=== PATIENT | male | born 1980 | race Caucasian/White ===

== ENCOUNTER 2018-07-19 18:31 | Emergency (ER) | payer BC, OTHER ==
--- NOTE | 2018-07-19 18:35 | PDOC ---
Rapid Medical Evaluation Time Seen by Provider: 07/19/18 18:32 Medical Evaluation: 07/19/18 18:33 I have performed a brief in-person evaluation of this patient. The patient presents with a chief complaint of: injury to right hand. Reports pain to fingers of right hand, got caught in a machinery at work Pertinent physical exam findings are: NAD even and unlabored breathing right 2nd, 3rd, and 4th fingers with superficial abrasions +swelling I have ordered the following: xray ordered The patient will proceed o the Ed for further evaluation.
[2018-07-19 18:36] VITALS: BP 156/96; PULSE 84; TEMP 97.9; BMI 28.8
[2018-07-19] MEDS ORDERED: DIPHTH,PERTUSS(ACELL),TET 0.5 ML DISP.SYRIN IM ONE (18:37)
[2018-07-19] MEDS ORDERED: IBUPROFEN 400 MG TABLET (FP) PO ONE ×2 (19:13→19:16)
--- NOTE | 2018-07-19 19:13 | PDOC ---
History of Present Illness - General Chief Complaint: Injury Stated Complaint: SWOLLEN FINGERS/YFD Time Seen by Provider: 07/19/18 18:32 History Source: Patient Exam Limitations: No Limitations - History of Present Illness Initial Comments: 07/19/18 19:46 Patient is a 38-year-old male who works for [employer], who presents emergency department today after getting his right hand caught in on a a metal step on the fire truck. Patient states he was pulling something down the steps fell on his hand. He states that the top 3 of his right digits hurt. Denies fevers, weakness, numbness and tingling to the extremities Past History - Past History Allergies/Adverse Reactions: Allergies No Known Allergies Allergy (Verified 07/19/18 18:36) Home Medications: Ambulatory Orders Aspirin 81 mg PO DAILY 07/19/18 Tetanus Status: More than 5 years - Social History Smoking Status: Never smoked Review of Systems - Review of Systems Able to Perform ROS?: Yes Comments:: 07/19/18 19:47 CONSTITUTIONAL: Absent: fever, chills, diaphoresis, generalized weakness, malaise, loss of appetite HEENT: Absent: rhinorrhea, nasal congestion, throat pain, throat swelling, difficulty swallowing, mouth swelling, ear pain, eye pain, visual Changes CARDIOVASCULAR: Absent: chest pain, loss of consciousness, palpitations, irregular heart rate, peripheral edema RESPIRATORY: Absent: cough, shortness of breath, dyspnea with exertion, orthopnea, wheezing, stridor, hemoptysis GASTROINTESTINAL: Absent: abdominal pain, abdominal distension, nausea, vomiting, diarrhea, constipation, melena, hematochezia GENITOURINARY: Absent: dysuria, frequency, urgency, hesitancy, hematuria, flank pain, genital pain MUSCULOSKELETAL: Present: R hand pain Absent: myalgia, arthralgia, joint swelling SKIN: Absent: rash, itching, pallor HEMATOLOGIC/IMMUNOLOGIC: Absent: easy bleeding, easy bruising, lymphadenopathy, frequent infections ENDOCRINE: Absent: unexplained weight gain, unexplained weight loss, heat intolerance, cold intolerance NEUROLOGIC: Absent: headache, focal weakness or paresthesias, dizziness, unsteady gait, seizure, mental status changes, bladder or bowel incontinence PSYCHIATRIC: Absent: anxiety, depression, suicidal or homicidal ideation, hallucinations. Is the patient limited [place] Citizen proficient: No *Physical Exam - Vital Signs Last Vital Signs Temp Pulse Resp BP Pulse Ox 97.9 F 84 16 156/96 98 07/19/18 18:31 07/19/18 18:31 07/19/18 18:31 07/19/18 18:31 07/19/18 18:31 - Physical Exam Comments: 07/19/18 19:48 GENERAL: Well developed, well nourished. Awake and alert. No acute distress. NECK: Supple. Full ROM. No JVD. Carotid pulses 2+ and symmetric, without bruits. No thyromegaly. No lymphadenopathy. MUSCULOSKELETAL Pt able to move all fingers on the R hand. Normal range of motion at all joints. No bony deformities or tenderness. No CVA tenderness. EXTREMITIES: No cyanosis. No clubbing. No edema. No calf tenderness. SKIN: Abrasions and bruising to the PIP of the R 2nd-4th digits. Warm and dry. Normal capillary refill. No rashes. No jaundice. NEUROLOGICAL: Alert, awake, appropriate. Cranial nerves 2-12 intact. No deficits to light touch and temperature in face, upper extremities and lower extremities. No motor deficits in the in face, upper extremities and lower extremities. Normoreflexic in the upper and lower extremities. Normal speech. Toes are down- going bilaterally. Gait is normal without ataxia. PSYCHIATRIC: Cooperative. Good eye contact. Appropriate mood and affect. ED Treatment Course - Medications Given in the ED: ED Medications Discontinued Medications Generic Name Dose Route Start Last Admin Trade Name Freq PRN Reason Stop Dose Admin Diphtheria/Tetanus/Acell Pertussis 0.5 ml 07/19/18 18:37 07/19/18 18:54 Boostrix - IM 07/19/18 18:38 0.5 ml .ONCE ONE Administration Medical Decision Making - Medical Decision Making 07/19/18 19:49 Pt is a 38 y/o M who presents to the ED with R hand pain after having a step on the fire truck fall on it -Hand is with abrasions to the second through fourth right PIP joints. -Hand is neurologically intact, strength is equal bilaterally. Patient able to make a fist. -X-rays negative for fractures. -Most the abrasions with bruising. -Motrin given with relief of symptoms -Discharge home. -I discussed the physical exam findings, ancillary test results and final diagnoses with the patient. I answered all of the patient's questions. The patient was satisfied with the care received and felt comfortable with the discharge plan and treatment plan. The Patient agrees to follow up with the primary care physician/specialist within 24-72 hours. Return precautions were given. *DC/Admit/Observation/Transfer Diagnosis at time of Disposition: Finger pain, right, Abrasion - Discharge Dispostion Disposition: HOME Condition at time of disposition: Stable Decision to Admit order: No - Referrals Referrals: Andrea Chew MD [Staff Physician] - - Patient Instructions Printed Discharge Instructions: DI for Hand Pain Additional Instructions: Your x-ray is negative for broken bones. You may apply bacitracin to the areas that are scraped. Please apply ice to the hand to prevent swelling. He may take Motrin 800 mg every 8 hours as needed for pain. Please follow up with your primary care doctor this week. Return to the emergency department if you have worsening pain, redness purulent/ drainage to the hands, after unable to move your hands, or if you have any changes in your symptoms - Post Discharge Activity Forms/Work/School Notes: Back to Work
== END 2018-07-19 19:32 | disposition home or self-care (01) ==
LOC: JERFT 18:31
PROC: 3E0234Z Introduction of Serum, Toxoid and Vaccine into Muscle, Percutaneous Approach (ICD-10-PCS; principal; 2018-07-19)
DX: S60.418A Abrasion of other finger, initial encounter (principal); W23.1XXA Caught, crushed, jammed, or pinched between stationary objects, initial encounter; V86.61XA Passenger of ambulance or fire engine injured in nontraffic accident, initial encounter; Y92.414 Local residential or business street as the place of occurrence of the external cause; Y99.0 Civilian activity done for income or pay; Y93.89 Activity, other specified
CPT/HCPCS: 73130-TC-RT-FY; 90715; 99281-25

== ENCOUNTER 2020-06-18 19:45 | Emergency (ER) | payer OTHER ==
[2020-06-18 19:56] VITALS: BP 123/78; PULSE 73; TEMP 98.6; BMI 28.0
--- NOTE | 2020-06-18 20:48 | PDOC ---
History of Present Illness - General Chief Complaint: Injury Stated Complaint: FALLS- L SHOULDER PAIN Time Seen by Provider: 06/18/20 20:14 History Source: Patient Exam Limitations: No Limitations - History of Present Illness Initial Comments: 06/18/20 20:43 Patient is a 40-year-old male who presents to the ED with left shoulder pain after he tripped while walking down the stairs at work and hit a tile wall directly in front of him. He states he did not fall to the ground and did not hit his head. He states he has been having shoulder pain since the injury. He denies feeling a pop or crack. He denies any numbness or tingling. He has a history of a bicuspid aortic valve with a bovine replacement and ascending aortic grafting. He developed an ascending aortic aneurysm from the bicuspid aortic valve. He is currently on aspirin only. Past History - Medical History Allergies/Adverse Reactions: Allergies Allergy/AdvReac Type Severity Reaction Status Date / Time Penicillins Allergy Verified 06/18/20 19:57 Home Medications: Ambulatory Orders Aspirin 81 mg PO DAILY 07/19/18 COPD: No - Surgical History Cardiac Surgery: Yes (bicuspid valve replacement, 2015 aorta) - Psycho-Social/Smoking History Smoking History: Former smoker Have you smoked in the past 12 months: No Information on smoking cessation initiated: No - Substance Abuse Hx (Audit-C & DAST Scrn) How often the patient has a drink containing alcohol: Never Score: In Men: 4 or > Positive; In Women: 3 or > Positive: 0 Screen Result (Pos requires Nsg. Audit-10AR): Negative In the last yr the pt used illegal drug/Rx for NonMed reason: No Score: Yes response is considered Positive: 0 Screen Result (Positive result requires Nsg. DAST-10): Negative Review of Systems - Review of Systems Comments:: 06/18/20 20:44 - Review of Systems Able to Perform ROS?: Yes Constitutional: No: Fever, Chills, Loss of Appetite, Night Sweats, Weakness HEENTM: No: Eye Pain, Vision changes, Ear Pain, Throat Pain, Throat Swelling, Mouth Pain, Difficulty Swallowing Respiratory: No: Cough, Shortness of Breath, Wheezing, Sputum Production Cardiac (ROS): No: Chest Pain, Chest Tightness, Palpitations, Irregular Heart Beat, Edema ABD/GI: No: Nausea, Vomiting, Abdominal Pain, Diarrhea : No Dysuria, No Hematuria, No Frequency, No Urgency Musculoskeletal: No: Muscle Pain, Back Pain, Muscle Weakness, Neck Pain; positive: Left shoulder pain Integumentary: No: Lesions, Rash Neurological: No: Headache, Numbness, Tingling, Weakness, Speech Difficulties *Physical Exam - Vital Signs Last Vital Signs Temp Pulse Resp BP Pulse Ox 98.6 F 73 19 123/78 97 06/18/20 19:53 06/18/20 19:53 06/18/20 19:53 06/18/20 19:53 06/18/20 19:53 - Physical Exam 06/18/20 20:45 - Physical Exam General Appearance: Nourished, Appropriately Dressed, No Distress HEENT: EOMI, Normal Voice, Hearing Grossly Normal Neck: Supple, No Lymphadenopathy (R), No Lymphadenopathy (L), No Rigidity, No Decreased range of motion Respiratory/Chest: Lungs Clear, Normal Breath Sounds. No Respiratory Distress, No Accessory Muscle Use Cardiovascular: Regular Rhythm, Regular Rate, S1, S2 Gastrointestinal/Abdominal: Normal Bowel Sounds, Soft. Non-tender, No Guarding, No Rebound, No Rigidity Musculoskeletal: Normal Inspection. No Decreased Range of Motion; tenderness to the distal clavicle region on the left side. No step-off appreciated. No proximal humeral or bicipital tenderness to palpation. Full range of motion at the elbow, wrist and all fingers. Sensation intact to the radial, median and u lnar nerve distributions. Brisk capillary refill distally. Extremity: Normal Capillary Refill, Normal Inspection Integumentary: Normal Color, Dry. No Rash Neurologic: early childhood education specialist II-XII NML intact, Fully Oriented, Alert, Normal Mood/Affect, Normal Response Medical Decision Making - Medical Decision Making 06/18/20 20:46 Assessment: Patient is a 40-year-old male with left shoulder pain after tripping and hitting into a wall. Plan: -Left shoulder x-ray reviewed and shows no acute pathology. -Patient advised to take Tylenol or ibuprofen for pain. He declined any in the ED at this time. -Patient to follow-up with orthopedics for repeat evaluation and treatment particularly if his symptoms persist -The patient is stable for discharge and he understands and agrees with this treatment plan. Discharge - Discharge Information Problems reviewed: Yes Clinical Impression/Diagnosis: Left shoulder pain Qualifiers: Chronicity: acute Qualified Code(s): M25.512 - Pain in left shoulder Condition: Stable Disposition: HOME - Follow up/Referral Referrals: Oliverio Hurtado MD [Primary Care Provider] - Andrea Chew MD [Staff Physician] - 1 week - Patient Discharge Instructions Patient Printed Discharge Instructions: DI for Shoulder Pain Additional Instructions: Apply ice to your left shoulder to help with pain and swelling. Take Tylenol or ibuprofen for pain. We did not see any acute fracture on your x-rays. Follow- up with orthopedics within 1 week if your symptoms persist. - Post Discharge Activity Work/Back to School Note: Back to Work
== END 2020-06-18 20:56 | disposition home or self-care (01) ==
LOC: JERFT 19:45
DX: M25.512 Pain in left shoulder (principal)
CPT/HCPCS: 73030-TC-LT-FY; 73060-TC-LT-FY; 99284-25

== ENCOUNTER 2021-08-13 13:46 | Emergency (ER) | payer OTHER ==
[2021-08-13] MEDS ORDERED: ASPIRIN 81 MG CHEWABLE TABLETS PO ONE (15:02)
[2021-08-13 15:05] LABS: BASO % 0.9 % (0-2.0); EOS % 4.9 % (0-4.5); HEMATOCRIT 40.6 % (35.4-49); HEMOGLOBIN 14.3 GM/dL (11.7-16.9); LYMPH % 12.5 % (8-40); MCH 30.7 pg (25.7-33.7); MCHC 35.2 g/dl (32.0-35.9); MEAN CELL VOLUME 87.2 fl (80-96); MEAN PLT VOLUME 7.4 fl (7.5-11.1); MONO % 8.7 % (3.8-10.2); PLATELET COUNT 218 10^3/uL (134-434); RBC 4.66 M/mm3 (4.00-5.60); RDW 13.1 % (11.9-15.9); WHITE BLOOD COUNT 6.3 K/mm3 (4.0-10.0)
[2021-08-13 15:12] LABS: INR 0.94 (0.83-1.09); PROTHROMBIN TIME (PATIENT) 11.6 SEC (9.7-13.0)
[2021-08-13 15:15] LABS: ACTIVATED PTT 27.1 SECONDS (25.2-36.5)
[2021-08-13 15:27] LABS: CHLORIDE 107 mmol/L (98-107); SODIUM 139 mmol/L (136-145)
[2021-08-13 15:30] LABS: ALBUMIN 3.8 g/dl (3.4-5.0); ANION GAP 8 MMOL/L (8-16); CALCIUM 8.4 mg/dL (8.5-10.1); CO2 24 mmol/L (21-32); GLUCOSE,RANDOM 93 mg/dL (74-106)
[2021-08-13 15:33] LABS: SGOT/AST 20 U/L (15-37); SGPT/ALT 31 U/L (13-61)
[2021-08-13 15:34] LABS: CHOLESTEROL 223 mg/dL (50-200); TRIGLYCERIDES 310 mg/dL (0-150)
[2021-08-13 15:35] LABS: BILIRUBIN,TOTAL 0.5 mg/dL (0.2-1); LDL CHOLESTEROL (ONLY SJRH) 142 mg/dL (5-100); TOT PROT 6.9 g/dl (6.4-8.2)
[2021-08-13 15:36] LABS: ALK PHOS 50 U/L (45-117); HDL CHOLESTEROL 36 mg/dL (40-60)
[2021-08-13] MEDS ORDERED: ASPIRIN 81 MG CHEWABLE TABLETS ONE (15:45)
[2021-08-13] MEDS ORDERED: ATORVASTATIN CA 80 MG TABLET (FP) PO ONE (16:08)
[2021-08-13] MEDS ORDERED: ATORVASTATIN CA 80 MG TABLET (FP) ONE (16:22)
[2021-08-13 17:08] VITALS: BMI 28.0
[2021-08-13 17:22] VITALS: BP 154/76; PULSE 74; TEMP 98
== END 2021-08-13 17:22 | disposition short-term general hospital (02) ==
LOC: JER 13:46
DX: H53.8 Other visual disturbances (principal)
CPT/HCPCS: 36415; 70450-TC; 70496-TC; 70498-TC; 80053; 80061; 82550; 82553; 82962; 83036; 84484; 85025; 85610; 85730; 86850; 86900; 86901; 93005; 93010; 99284-25; C9803; Q9967; U0003; U0005